=== PATIENT | female | born 1980 | race Caucasian/White ===

== ENCOUNTER 2017-12-10 05:36 | Inpatient (IN) | payer OTHER ==
--- NOTE | 2017-12-10 06:17 | PCM.LDHP ---
L&D History of Present Illness - General Date of Service: 12/10/17 Admit Problem/Dx: Admission Diagnosis/Problem Admission Diagnosis/Problem 12/10/17 06:02 39-3/7 week intrauterine , admitted for elective induction of labor Source of Information: Patient History Limitations: Reports: No Limitations - History of Present Illness Introduction:: Shilpa is a 37-year-old 4 para 210 white female was admitted at 39-3/7 weeks gestational age for elective induction of labor. He is 12/14/2017 as determined by a certain last menstrual period which started on 03/09/2017 and is supported by 3 ultrasounds that were done on 05/31/2017, 08/03/2017 and 2017. She is induced for distance from the hospital and multiparous status. Risk factors for the include age of 37, history of previous section for twins that were delivered , group B strep positive status, thyroid nodule, progesterone deficiency early in . The procedure of elective induction of labor, its risks, benefits and as of care are discussed in detail the patient. These risks especially in light of her history of previous section which was a low transverse section done for twins last . She appears to understand, wishes to proceed. OB history: 4 para 06/24/03 MARCELINA 12/14/2017. Patient had menarche at age 16 , cycles every 28 days. Her last menstrual period was definite and started on . Her menses are regular on a monthly basis. Her past obstetric history includes the followin. Male born 02/13/2014 at 38 weeks gestational age5 lbs. 11 oz.17 hours of labornormal spontaneous vaginal delivery at [place]. Second-degree laceration. 2. Male born 06/26/2015 at 39-3/7 weeks gestational age1-1/2 hour labor6 lbs. 13 oz.born at [place] name [place] 3. Twin gestation delivered 05/14/2016-twin A male infant 3 lbs. 5 oz., twin B male infant 3 lbs. 2 oz. done at [facility] in [place] for labor. Children's names are Milton and Elijah course has been relatively unremarkable. She has a breast lump which was benign and stable during the course of . She declined genetic testing. She is group B strep positive. History of delivery. I reviewed nodule -single noted. Patient seen early in the for care. First visit was at 11-6/7 weeks gestational age. Her was from 257 pounds 200 283 pounds for a 27 pound weight gain. Her vital signs stable throughout the . Her fundal height growth was appropriate. Laboratory testing in shows her blood to be AB+, negative antibody screen. RPR is nonreactive. Rubella titer shows immunity. Pap smear was normal. First CBC showed a hemoglobin of 14.5 g/dL and platelets of 306,000. Unremarkable. Hepatitis B surface antigen and HIV assays were both negative. Chlamydia and gonorrhea assays both negative. Second trimester labs showed hemoglobin 12.0 g/dL and platelets 268,000. Her 1 hour GTT was elevated at 172 or 3 hour GTT was normal with values as follows: [id number], 1 [id number], 2 [id number] , [id number]. Strep screen positive. Allergies: None Medications: 1. Proair inhaler use when necessarypatient uses infrequently 2. vitamins daily 3. Full gas capsules 4. Ferrous sulfate 325 mg by mouth daily Past medical history: Normal spontaneous vaginal delivery 2 Asthmamild 3. Hayfever Past surgical history: 1. Rest enhancement surgery 2. 1 for twins 3. Bladder surgery as a child. Family history: Patient's mother is alive and well as is her father. Patient has 6 siblings 1 with epilepsy 1 with diabetes mellitus. All her children are alive and well. Maternal grandmother is alive but has a history of colon cancer and lung cancer but is doing well. Maternal grandfather secondary to bladder cancer, heart issues, diabetes and the leg amputation. Paternal grandmother age 92 has history of breast cancer. Paternal grandfather from an ID. One paternal aunt with rheumatoid arthritis, one paternal thyroid disorder, one paternal with history of liver transplant for uncertain reasons. Social history: Patient is single, lives in [facility]. Her significant other is Satish Landon. She does not use any significant loss of alcohol, drugs or tobacco. Review of systems: In general patient has had an unremarkable . Babies been active and no concerns are noted. Skin: Negative Cardiovascular: No chest pain or exercise intolerance Respiratory: No shortness of breath or infectious symptoms Breasts: Changes associated with . Patient plans to breast-feed GI: Negative : Body habitus change with increased fundal height consistent with Neurological: Negative Musculoskeletal: Negative Physical exam: In general patient is well-developed well-nourished overweight white female in no acute distress. Blood pressure on last evaluation clinic was 114/70, weight was 283.6 with first weight at 257 pounds. Her heart rate was 134. Height is 5 feet 10. Pregravid body mass index was 36.2 Skin is warm and dry without lesions. HEENT, neck and back within normal limits. Cardio gastric exam shows regular rhythm without murmurs. Lungs are clear with good breath sounds in all lung lorenz. Breast exam is deferred at this time as patient had this done at first visit was found to be normal. She does plan to breast-feed. Abdomen is protuberant fundal height 39 cm. Baby in vertex presentation. Cervical exam shows 2 cm, 70% effacement, -3 station, mid position, very soft. Extremities and neurological exam grossly within normal limits. - Related Data Allergies/Adverse Reactions: Allergies Allergy/AdvReac Type Severity Reaction Status Date / Time No Known Allergies Allergy Verified 02/13/14 15:46 Home Medications: Home Meds Vit with Ca/FA/Iron [ Plus Iron] 1 each PO DAILY #1100 tablet 02/15/14 [Rx] Acetaminophen/oxyCODONE [Percocet 325-5 MG] 2 tab PO Q4H PRN #30 tablet [Rx] Docusate Sodium [Colace] 100 mg PO Q12H PRN #20 cap 05/15/16 [Rx] Ibuprofen [IJD: Ibuprofen] 600 mg PO Q4H PRN #30 tablet 05/15/16 [Rx] Past Medical History HEENT History: Reports: Other (See Below) Other HEENT History: Recent dental pain, thought may have been an abscess. Saw dentist 2 weeks ago. Problem was a crown "going bad". Feels fine, will treat @ dentist office. Respiratory History: Reports: Asthma Other Respiratory History: History of Asthma--has Pro Air rescue inhaler, prescribed 2013. No use throughout . 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 Following surgery has not had any UTIs. 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 Denies needing thyroid medication/tx presently - Past Surgical History Female Surgical History: Reports: Breast Implant - History Comment History Comment: Pt interviewed as entering OR 1. Patient denies any health issues including asthma. Patient in alot of pain and moving about. Unable to get anesthesia consent prior only verbal consent. Social & Family History - Family History Family Medical History: Noncontributory Other HEENT Family History: PLEASE SEE RECORD FOR COMPLETE FAMILY HISTORY. - Caffeine Use Caffeine Use: Reports: None H&P Review of Systems - Review of Systems: Review Of Systems: See Below L&D Exam - Exam Exam: See Below Problem List Initiated/Reviewed/Updated: Yes Assessment/Plan Comment:: 1. 39-3/7 week intrauterine admitted for elective induction of labor 2. History of previous section for twins. Patient has delivered vaginally 2. incision is low transverse type. 3. Group B strep positive. Para 4. Patient plans to breast-feed at this time 5. Rubella immune 6. RPR nonreactive 7. Okay for epidural Plan: 1. Pitocin induction of labor, artificial rupture membrane augmentation 1 possible 2. Group B strep prophylaxis with ampicillin per protocol 3. After discussion is held with patient concerning risks of attempted vaginal after section she appears to understand and wishes to proceed. Consent will be signed for trial of labor with attempt at and for section. 4. labs will be drawn, near continuous monitoring will be undertaken during labor, IV access will be established at the beginning of labor, anesthesia and surgery will be made aware of patient's presence in labor and delivery 5. Suspected .
[2017-12-10] MEDS ORDERED: Nalbuphine 20 MG/ML 1 ML Syringe IVPUSH PRN (06:20)
[2017-12-10] MEDS ORDERED: Sodium Chloride 0.9% 10 ML Syringe FLUSH PRN (06:20)
[2017-12-10] MEDS ORDERED: Oxytocin/Lactated Ringers 10 UNIT/1,000 ML BAG IV SCH (06:30)
[2017-12-10] MEDS ORDERED: Ampicillin 2 GM in Sodium Chloride 0.9% 100 ML IV ONE (07:30)
[2017-12-10] MEDS: Lactated Ringers 1,000 ML IV SCH ×2 (08:29→16:04)
[2017-12-10] MEDS ORDERED: Lidocaine 1% PF 2 ML SDV ONE (09:00)
[2017-12-10] MEDS ORDERED: Bupivacaine 0.25% 10 ML SDV ONE (09:00)
--- NOTE | 2017-12-10 10:50 | PCM.PREANE ---
Preanesthetic Assessment - Anesthesia/Transfusion/Family Hx Anesthesia History: Prior Anesthesia Without Reaction Family History of Anesthesia Reaction: No Transfusion History: No Prior Transfusion(s) - Review of Systems General: No Symptoms Pulmonary: No Symptoms, Other (Mild Asthma. Allergen induced. ) Cardiovascular: No Symptoms Gastrointestinal: No Symptoms Neurological: No Symptoms Other: Reports: None - Physical Assessment Pulse: 83 O2 Sat by Pulse Oximetry: 98 Respiratory Rate: 18 Blood Pressure: 129/76 Vital Signs: Last Vital Signs Temp 36.6 C 12/10/17 06:21 Pulse 83 12/10/17 09:01 Resp 18 12/10/17 06:21 BP 129/76 12/10/17 09:01 Pulse Ox Height: 1.75 m Weight: 130.635 kg ASA Class: 2 Mental Status: Alert & Oriented x3 Airway Class: Mallampati = 2 Dentition: Reports: Normal Dentition Thyro-Mental Finger Breadths: 2 Mouth Opening Finger Breadths: 3 ROM/Head Extension: Full Lungs: Clear to Auscultation, Normal Respiratory Effort Cardiovascular: Regular Rate, Regular Rhythm - Allergies Allergies/Adverse Reactions: Allergies Allergy/AdvReac Type Severity Reaction Status Date / Time No Known Allergies Allergy Verified 02/13/14 15:46 - Acknowledgements Anesthesia Type Planned: Epidural Pt an Appropriate Candidate for the Planned Anesthesia: Yes Alternatives and Risks of Anesthesia Discussed w Pt/Guardian: Yes Pt/Guardian Understands and Agrees with Anesthesia Plan: Yes PreAnesthesia Questionnaire HEENT History: Reports: Other (See Below) Other HEENT History: hx dental pain prior , thought may have been an abscess. Problem was a crown "going bad". treated @ dentist office. Respiratory History: Reports: Asthma Other Respiratory History: History of Asthma--has Pro Air rescue inhaler, prescribed 2013. 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 Following surgery has not had any UTIs. 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 Denies needing thyroid medication/tx presently - Past Surgical History HEENT Surgical History: Reports: None Respiratory Surgical History: Reports: None Female Surgical History: Reports: Breast Implant, Section Dermatological Surgical History: Reports: None - History Comment History Comment: Pt interviewed as entering OR 1. Patient denies any health issues including asthma. Patient in alot of pain and moving about. Unable to get anesthesia consent prior only verbal consent. - SUBSTANCE USE Smoking Status *Q: Never Smoker Second Hand Smoke Exposure: No Recreational Drug Use History: No - HOME MEDS Home Medications: Home Meds Vit with Ca/FA/Iron [ Plus Iron] 1 each PO DAILY #1100 tablet 02/15/14 [Rx] Albuterol Sulfate [Proair Respiclick] 90 mcg IH Q4HR PRN 12/10/17 [History] Cetirizine [ZyrTEC] 10 mg PO DAILY 12/10/17 [History] Folic Acid 1 mg PO BEDTIME 12/10/17 [History] Lansoprazole [Prevacid] 1 tab PO DAILY 12/10/17 [History] - CURRENT (IN HOUSE) MEDS Current Meds: Current Medications Ampicillin Sodium 1 gm/ Sodium (Chloride) 100 mls @ 200 mls/hr IV Q4H FARZANEH Lactated Ringer's (Ringers, Lactated) 1,000 mls @ 100 mls/hr IV ASDIRECTED FARZANEH Last Admin: 12/10/17 08:29 Dose: 100 mls/hr Oxytocin/Lactated Ringer's (Pitocin In Lr 10 Units/1,000 Ml) 10 unit in 1,000 mls @ 12 mls/hr IV TITRATE FARZANEH; Protocol Last Titration: 12/10/17 10:39 Dose: 8 munits/min, 48 mls/hr Lidocaine HCl (Xylocaine 1%) 10 ml INJECT ONETIME ONE Stop: 12/10/17 13:01 Nalbuphine HCl (Nubain) 10 mg IVPUSH Q2H PRN PRN Reason: Pain (moderate 4-6) Sodium Chloride (Saline Flush) 10 ml FLUSH ASDIRECTED PRN PRN Reason: Keep Vein Open Discontinued Medications Ampicillin Sodium 2 gm/ Sodium (Chloride) 100 mls @ 200 mls/hr IV ONETIME ONE Stop: 12/10/17 07:59 Last Admin: 12/10/17 08:30 Dose: 200 mls/hr
[2017-12-10] MEDS ORDERED: Acetaminophen 325 MG Tab PO PRN ×2 (12:05→18:52)
[2017-12-10] MEDS: Ampicillin 1 GM in Sodium Chloride 0.9% 100 ML IV SCH ×2 (12:13→15:46)
[2017-12-10] MEDS ORDERED: Lidocaine 1% 50 ML MDV INJECT ONE (13:00)
[2017-12-10] MEDS ORDERED: Ondansetron 4 MG/2 ML SDV IVPUSH PRN (15:46)
[2017-12-10] MEDS ORDERED: fentaNYL 100 MCG/2 ML SDV EPIDUR PRN (15:46)
[2017-12-10] MEDS ORDERED: ePHEDrine 50 MG/ML SDV IVPUSH PRN (15:46)
[2017-12-10] MEDS ORDERED: diphenhydrAMINE 50 MG/ML SDV IVPUSH PRN (15:46)
[2017-12-10] MEDS ORDERED: fentaNYL 100 MCG/2 ML SDV ONE (15:52)
[2017-12-10] MEDS ORDERED: Bupivacaine/fentaNYL/NS 100 ML Bag EPIDUR SCH (16:00)
[2017-12-10] MEDS ORDERED: Albuterol 6.7 GM Inhaler INH PRN (18:17)
--- NOTE | 2017-12-10 18:26 | PCM.SN ---
- Free Text/Narrative Note: Shilpa is a 37-year-old 4 now para 3105 white female is admitted this a.m. at 39-3/7 weeks gestational age with an MARCELINA of 12/14/2017 for elective induction of labor. Patient had previous section and 2 previous vaginal deliveries. was done for twins. She was noted to have contractions upon admission. She underwent Pitocin induction and artificial rupture of membranes augmentation. She slowly progressed to 5 cm at approximately 1500 hrs. She then rapidly progressed to complete by about 1745 hours. She pushed for 3 contractions and delivered a viable, asencio, male infant with Apgars of 8 and 9, of length of 1913.5 inches and weight of 3330 g ( 7 lbs. 5 oz.) at 1802 hrs. on 12/10/2017. Baby was placed on mom's abdomen. Nose and mouth were bulb suctioned. The cord was allowed to pulsate until it stopped. The cord was clamped 2 and then cut by the baby's father. It should be noted patient is baby had a nuchal cord 1 which is moderately tight and was reduced over the baby's body. Perineum was intact and it is only a small very superficial abrasion in the area of the anterior vagina. No stitches were necessary. The placenta delivered at 1804 hrs. in a Bartlett presentation. It appeared intact and complete and was discarded per patient request. The umbilical cord had 3 vessels. Estimated blood loss was 100 mL. Patient is nursing the baby. Condition: Good
[2017-12-10] MEDS ORDERED: Benzocaine/Menthol 20%-0.5% Spray 56 GM Canister TOP PRN (18:52)
[2017-12-10] MEDS ORDERED: Docusate Sodium 100 MG Cap PO PRN (18:52)
[2017-12-10] MEDS ORDERED: Witch Hazel Medicated Pads 100/Jar TOP PRN (18:52)
[2017-12-10] MEDS ORDERED: Lanolin 100% Cream 7 GM Tube TOP PRN (18:52)
[2017-12-11] MEDS: Ibuprofen 600 MG Tab PO PRN ×2 (06:31→14:04)
--- NOTE | 2017-12-11 10:48 | PCM.DCSUM1 ---
Discharge Summary - Hospital Course Free Text/Narrative:: [facility] Provider Simple Note Patient Name: FRENCH GUEVARA Date of : 80 Patient Status: Inpatient Attending Provider: Venkata Luu Date: 12/10/17 18:20 Initialization Date: 12/10/17 18:20 - Free Text/Narrative Note: French is a 37-year-old 4 now para 3105 white female is admitted this a.m. at 39-3/7 weeks gestational age with an MARCELINA of 12/14/2017 for elective induction of labor. Patient had previous section and 2 previous vaginal deliveries. was done for twins. She was noted to have contractions upon admission. She underwent Pitocin induction and artificial rupture of membranes augmentation. She slowly progressed to 5 cm at approximately 1500 hrs. She then rapidly progressed to complete by about 1745 hours. She pushed for 3 contractions and delivered a viable, asencio, male with Apgars of 8 and 9, of length of 1913.5 inches and weight of 3330 g ( 7 lbs. 5 oz.) at 1802 hrs. on 12/10/2017. Baby was placed on mom's abdomen. Nose and mouth were bulb suctioned. The cord was allowed to pulsate until it stopped. The cord was clamped 2 and then cut by the baby's father. It should be noted patient is baby had a nuchal cord 1 which is moderately tight and was reduced over the baby's body. Perineum was intact and it is only a small very superficial abrasion in the area of the anterior vagina. No stitches were necessary. The placenta delivered at 1804 hrs. in a Bartlett presentation. It appeared intact and complete and was discarded per patient request. The umbilical cord had 3 vessels. Estimated blood loss was 100 mL. Patient is nursing the baby. Condition: Good HPI Initial Comments: [facility] Provider Simple Note Patient Name: FRENCH GUEVARA Date of : 80 Patient Status: Inpatient Attending Provider: Venkata Luu Date: 12/10/17 18:20 Initialization Date: 12/10/17 18:20 - Free Text/Narrative Note: French is a 37-year-old 4 now para 3105 white female is admitted this a.m. at 39-3/7 weeks gestational age with an MARCELINA of 12/14/2017 for elective induction of labor. Patient had previous section and 2 previous vaginal deliveries. was done for twins. She was noted to have contractions upon admission. She underwent Pitocin induction and artificial rupture of membranes augmentation. She slowly progressed to 5 cm at approximately 1500 hrs. She then rapidly progressed to complete by about 1745 hours. She pushed for 3 contractions and delivered a viable, asencio, male infant with Apgars of 8 and 9, of length of 1913.5 inches and weight of 3330 g ( 7 lbs. 5 oz.) at 1802 hrs. on 12/10/2017. Baby was placed on mom's abdomen. Nose and mouth were bulb suctioned. The cord was allowed to pulsate until it stopped. The cord was clamped 2 and then cut by the baby's father. It should be noted patient is baby had a nuchal cord 1 which is moderately tight and was reduced over the baby's body. Perineum was intact and it is only a small very superficial abrasion in the area of the anterior vagina. No stitches were necessary. The placenta delivered at 1804 hrs. in a Bartlett presentation. It appeared intact and complete and was discarded per patient request. The umbilical cord had 3 vessels. Estimated blood loss was 100 mL. Patient is nursing the baby. Condition: Good Brief History: [facility] . Provider Simple Note. Patient Name : FRENCH GUEVARA [facility] Record Number: [id number]. Date of : Patient Status: Inpatient. Attending Provider: Venkata Luu FAccount Number : [id number]. Date: 12/10/17 18:20Initialization Date: 12/10/17 18:20. - Free Text/Narrative. Note: French is a 37-year-old 4 now para 3105 white female is admitted this a.m. at 39-3/7 weeks gestational age with an MARCELINA of 12/14/2017 for elective induction of labor. Patient had previous section and 2 previous vaginal deliveries. was done for twins. She was noted to have contractions upon admission. She underwent Pitocin induction and artificial rupture of membranes augmentation. She slowly progressed to 5 cm at approximately 1500 hrs. She then rapidly progressed to complete by about 1745 hours. She pushed for 3 contractions and delivered a viable, asencio, male infant with Apgars of 8 and 9, of length of 1913.5 inches and weight of 3330 g (7 lbs. 5 oz.) at 1802 hrs. on 12/10/2017. Baby was placed on mom's abdomen. Nose and mouth were bulb suctioned. The cord was allowed to pulsate until it stopped. The cord was clamped 2 and then cut by the baby's father. It should be noted patient is baby had a nuchal cord 1 which is moderately tight and was reduced over the baby's body. Perineum was intact and it is only a small very superficial abrasion in the area of the anterior vagina. No stitches were necessary. The placenta delivered at 1804 hrs. in a Bartlett presentation. It appeared intact and complete and was discarded per patient request. The umbilical cord had 3 vessels. Estimated blood loss was 100 mL. Patient is nursing the baby. Condition: Good. [facility] . Provider Simple Note. [facility]: [id number] Date of : 80Patient Status : Inpatient. Attending Provider: Venkata Luu FAccount Number: [id number]. Date: 12/10/17 18:20Initialization Date: 12/10/17 18:20. - Free Text/ Narrative. Note: French is a 37-year-old 4 now para 3105 white female is admitted this a.m. at 39-3/7 weeks gestational age with an MARCELINA of 12/14/2017 for elective induction of labor. Patient had previous section and 2 previous vaginal deliveries. was done for twins. She was noted to have contractions upon admission. She underwent Pitocin induction and artificial rupture of membranes augmentation. She slowly progressed to 5 cm at approximately 1500 hrs. She then rapidly progressed to complete by about 1745 hours. She pushed for 3 contractions and delivered a viable, asencio, male infant with Apgars of 8 and 9, of length of 1913.5 inches and weight of 3330 g ( 7 lbs. 5 oz.) at 1802 hrs. on 12/10/2017. Baby was placed on mom's abdomen. Nose and mouth were bulb suctioned. The cord was allowed to pulsate until it stopped. The cord was clamped 2 and then cut by the baby's father. It should be noted patient is baby had a nuchal cord 1 which is moderately tight and was reduced over the baby's body. Perineum was intact and it is only a small very superficial abrasion in the area of the anterior vagina. No stitches were necessary. The placenta delivered at 1804 hrs. in a Bartlett presentation. It appeared intact and complete and was discarded per patient request. The umbilical cord had 3 vessels. Estimated blood loss was 100 mL. Patient is nursing the baby. 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 OF GROUP B STREPTOCOCCUS Status: Acute Current Visit: No (3) Normal delivery at term SNOMED Code(s): 40169870 ICD Code: O80 - ENCOUNTER FOR FULL-TERM UNCOMPLICATED DELIVERY Status: Acute Current Visit: No - Patient Summary/Data Complications: None Consults: None Hospital Course: Uneventful - Patient Instructions Diet: Regular Diet as Tolerated Driving: Do Not Drive (48 hours) Showering/Bathing: May Shower Notify Provider of: Fever, Increased Pain, Swelling and Redness, Drainage, Nausea and/or Vomiting - Discharge Plan *PRESCRIPTION DRUG MONITORING PROGRAM REVIEWED*: Not Applicable *COPY OF PRESCRIPTION DRUG MONITORING REPORT IN PATIENT BLADIMIR: Not Applicable Home Medications: Home Meds Vit with Ca/FA/Iron [ Plus Iron] 1 each PO DAILY #1100 tablet 02/15/14 [Rx] Albuterol Sulfate [Proair Respiclick] 90 mcg IH Q4HR PRN 12/10/17 [History] Cetirizine [ZyrTEC] 10 mg PO DAILY 12/10/17 [History] Folic Acid 1 mg PO BEDTIME 12/10/17 [History] Lansoprazole [Prevacid] 1 tab PO DAILY 12/10/17 [History] Acetaminophen [Tylenol] 650 mg PO Q4H PRN tablet 12/11/17 [Rx] Benzocaine/Menthol [Dermoplast Pain Relief [place]] 1 spray TOP ASDIRECTED PRN canister 12/11/17 [Rx] Docusate Sodium [Colace] 100 mg PO BID PRN cap 12/11/17 [Rx] Ibuprofen [Motrin] 600 mg PO Q4H PRN tablet 12/11/17 [Rx] Lanolin [Lansinoh HPA] 1 applic TOP ASDIRECTED PRN tube 12/11/17 [Rx] Jenniffer Mikayla [Tucks] 1 pad TOP ASDIRECTED PRN pad 12/11/17 [Rx] Referrals: Venkata Luu MD [Primary Care Provider] - (Will call Wednesday for an appointment in 2 weeks.) - Discharge Summary/Plan Comment DC Time >30 min.: No - Patient Data Vitals - Most Recent: Last Vital Signs Temp 98.8 F 12/11/17 09:08 Pulse 68 12/11/17 09:08 Resp 16 12/11/17 09:08 BP 127/74 12/11/17 09:08 Pulse Ox 98 12/11/17 09:08 Weight - Most Recent: 288 lb I&O - Last 24 hours: Intake & Output 12/10/17 12/11/17 12/11/17 22:59 06:59 14:59 Intake Total 2100 420 Output Total 300 Balance 1800 420 Lab Results - Last 24 hrs: Laboratory Results - last 24 hr 12/10/17 12/10/17 Range/Units 10:56 10:56 WBC 8.07 (3.98-10.04) K/mm3 RBC 3.90 L (3.98-5.22) M/mm3 Hgb 11.9 (11.2-15.7) gm/L Hct 34.8 (34.1-44.9) % MCV 89.2 (79.4-94.8) fl MCH 30.5 (25.6-32.2) pg MCHC 34.2 (32.2-35.5) g/dl RDW Std Deviation 42.7 (36.4-46.3) fL Plt Count 259 (182-369) K/mm3 MPV 10.5 (9.4-12.3) fl Blood Type AB POSITIVE Gel Antibody Screen Negative Med Orders - Current: Current Medications Acetaminophen (Tylenol) 650 mg PO Q4H PRN PRN Reason: mild pain or fever Last Admin: 12/10/17 20:54 Dose: 650 mg Benzocaine/Menthol (Dermoplast Pain Relief [place]) 0 gm TOP ASDIRECTED PRN PRN Reason: Perineal Comfort Measure Last Admin: 12/10/17 20:55 Dose: 1 applic Docusate Sodium (Colace) 100 mg PO BID PRN PRN Reason: Constipation Emollient Ointment (Lansinoh Hpa) 0 gm TOP ASDIRECTED PRN PRN Reason: Sore Nipples Ibuprofen (Motrin) 600 mg PO Q4H PRN PRN Reason: Mild pain or fever Last Admin: 12/11/17 06:31 Dose: 600 mg Witch Mikayla (Tucks) 1 pad TOP ASDIRECTED PRN PRN Reason: Hemorrhoid pain Last Admin: 12/10/17 20:55 Dose: 1 applic Discontinued Medications Acetaminophen (Tylenol) 650 mg PO Q6H PRN PRN Reason: Pain Last Admin: 12/10/17 12:13 Dose: 650 mg Albuterol (Proventil Hfa) 0 gm INH Q4HR PRN PRN Reason: Dyspnea Bupivacaine HCl (Sensorcaine-Mpf 0.25%) 10 ml .ROUTE .STK-MED ONE Stop: 12/10/17 09:01 Diphenhydramine HCl (Benadryl) 25 mg IVPUSH Q6H PRN PRN Reason: Pruritis Ephedrine Sulfate (Ephedrine Sulfate) 5 mg IVPUSH ASDIRECTED PRN PRN Reason: Hypotension Fentanyl (Sublimaze) 100 mcg EPIDUR ONETIME PRN PRN Reason: Pain Last Admin: 12/10/17 15:56 Dose: 100 mcg Fentanyl (Sublimaze) Confirm Administered Dose 100 mcg .ROUTE .STK-MED ONE Stop: 12/10/17 15:53 Last Admin: 12/10/17 15:57 Dose: Not Given Fentanyl/Bupivacaine HCl (Fentanyl/Bupivacaine/Ns 2 Mcg-0.125% 100 Ml) 100 ml EPIDUR ASDIRECTED FARZANEH Last Admin: 12/10/17 15:58 Dose: 100 ml Ampicillin Sodium 2 gm/ Sodium (Chloride) 100 mls @ 200 mls/hr IV ONETIME ONE Stop: 12/10/17 07:59 Last Admin: 12/10/17 08:30 Dose: 200 mls/hr Ampicillin Sodium 1 gm/ Sodium (Chloride) 100 mls @ 200 mls/hr IV Q4H FARZANEH Last Admin: 12/10/17 15:46 Dose: 200 mls/hr Lactated Ringer's (Ringers, Lactated) 1,000 mls @ 100 mls/hr IV ASDIRECTED FARZANEH Last Admin: 12/10/17 16:04 Dose: 100 mls/hr Oxytocin/Lactated Ringer's (Pitocin In Lr 10 Units/1,000 Ml) 10 unit in 1,000 mls @ 12 mls/hr IV TITRATE FARZANEH; Protocol Last Titration: 12/10/17 14:32 Dose: 16 munits/min, 96 mls/hr Lidocaine HCl (Xylocaine 1%) 10 ml INJECT ONETIME ONE Stop: 12/10/17 13:01 Last Admin: 12/10/17 18:41 Dose: Not Given Lidocaine HCl (Xylocaine-Mpf 1%) 2 ml .ROUTE .STK-MED ONE Stop: 12/10/17 09:01 Nalbuphine HCl (Nubain) 10 mg IVPUSH Q2H PRN PRN Reason: Pain (moderate 4-6) Ondansetron HCl (Zofran) 4 mg IVPUSH ONETIME PRN PRN Reason: Nausea/Vomiting Sodium Chloride (Saline Flush) 10 ml FLUSH ASDIRECTED PRN PRN Reason: Keep Vein Open
[2017-12-11 20:09] VITALS: BP 127/80
--- NOTE | 2017-12-12 17:51 | PCM48HPAN ---
Post Anesthesia Note - EVALUATION WITHIN 48HRS OF ANESTHETIC Vital Signs in Normal Range: Yes Patient Participated in Evaluation: No Respiratory Function Stable: Yes Airway Patent: Yes Cardiovascular Function Stable: Yes Hydration Status Stable: Yes Pain Control Satisfactory: Yes Nausea and Vomiting Control Satisfactory: Yes Mental Status Recovered: Yes - COMMENTS/OBSERVATIONS Free Text/Narrative:: Patient discharged home. Chart reviewed. No complications noted. Patient had no further questions at discharge.
== END 2017-12-11 19:30 | disposition home or self-care (01) | DRG 775 ==
LOC: JD.OB 07:21 → OBSVTOIN 18:02 → JD.OB 18:02
PROVIDERS: ADMIT Obstetrics & Gynecology; ATTEND Obstetrics & Gynecology
PROC: 10E0XZZ Delivery of Products of Conception, External Approach (ICD-10-PCS; principal; 2017-12-10)
PROC: 3E033VJ Introduction of Other Hormone into Peripheral Vein, Percutaneous Approach (ICD-10-PCS; principal; 2017-12-10)
PROC: 10907ZC Drainage of Amniotic Fluid, Therapeutic from Products of Conception, Via Natural or Artificial Opening (ICD-10-PCS; principal; 2017-12-10)
PROC: 3E0R3BZ Introduction of Anesthetic Agent into Spinal Canal, Percutaneous Approach (ICD-10-PCS; 2017-12-10)
PROC: 00HU33Z Insertion of Infusion Device into Spinal Canal, Percutaneous Approach (ICD-10-PCS; 2017-12-10)
DX: O99.824 Streptococcus B carrier state complicating childbirth (principal); Z37.0 Single live birth; O34.211 Maternal care for low transverse scar from previous cesarean delivery; N85.8 Other specified noninflammatory disorders of uterus; O69.1XX0 Labor and delivery complicated by cord around neck, with compression, not applicable or unspecified; O99.52 Diseases of the respiratory system complicating childbirth; Z3A.39 39 weeks gestation of pregnancy; J45.909 Unspecified asthma, uncomplicated; Z87.440 Personal history of urinary (tract) infections; O99.284 Endocrine, nutritional and metabolic diseases complicating childbirth; E04.2 Nontoxic multinodular goiter
CPT/HCPCS: 36415; 51702; 59025; 59409; 85027; 86850; 86900; 86901; A9270-GY; J0290; J2001; J2590; J3010; J3490; J7030; J7120

== ENCOUNTER 2020-07-22 00:54 | Inpatient (IN) | payer MEDICAID ==
[2020-07-22] MEDS ORDERED: Calcium Carbonate 500 MG Tab.Chew PO PRN (01:51)
[2020-07-22] MEDS ORDERED: Nalbuphine 10 MG/1 ML Vial IVPUSH PRN (01:51)
[2020-07-22] MEDS ORDERED: Acetaminophen 325 MG Tab PO PRN ×2 (01:51→07:16)
[2020-07-22] MEDS ORDERED: Sodium Chloride 0.9% 10 ML Syringe FLUSH PRN (01:51)
[2020-07-22] MEDS ORDERED: Lidocaine 1% 50 ML MDV INJECT ONE (01:51)
[2020-07-22] MEDS ORDERED: Ondansetron 4 MG/2 ML SDV IVPUSH PRN (01:51)
[2020-07-22] MEDS ORDERED: Lactated Ringers 1,000 ML IV SCH (02:00)
[2020-07-22] MEDS ORDERED: Oxytocin/Lactated Ringers 10 UNIT/1,000 ML BAG IV SCH ×2 (02:00)
--- NOTE | 2020-07-22 05:55 | PCM.LDHP ---
L&D History of Present Illness - General Date of Service: 07/22/20 Admit Problem/Dx: Patient Status Order with Admit Dx/Problem 07/22/20 01:03 Patient Status [ADT] Routine 07/22/20 01:51 Patient Status [ADT] Routine Admission Diagnosis/Problem Admission Diagnosis/Problem 07/22/20 05:40 Shilpa is a 39-year-old 5 para 3-1-0-5 (twins) presently at 37-6/7 weeks gestational age with an MARCELINA of 08/06/2020 who is admitted to labor and delivery in early labor with spontaneous rupture membranes with resultant clear amniotic fluid. Source of Information: Patient History Limitations: Reports: No Limitations - History of Present Illness Introduction:: Shilpa is a 39-year-old 5 para 3-1-0-5 (twins) presently at 37-6/7 weeks gestational age with an MARCELINA of 08/06/2020 who is admitted to labor and delivery in early labor with spontaneous rupture membranes with resultant clear amniotic fluid. SROM occurred at approximately 2330 hrs. on 07/21/2020. She started labor and is suzi approximate every 3 to 5 minutes, mild to moderate in intensity. Cervix is 5 cm per nursing evaluation. Amniotic fluid is clear. heart tones are reassuring. 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 Patient had menarche at appr oximately age 12. Cycles are every 30 days and regular. hCG was positive on 11/28/2019. She denies any STIs. History includes the followin. Female infant born 02/13/2014 at 38 weeks gestational age after 17 hours of labor5 pounds 11 ouncesNSVDepidural useSt. [facility] Hospitalecond-degree lacerationSadie Supriya 2. Male infant born 06/26/1999 1639 and 3 7 weeks gestational age1-1/2 hours of labor6 pounds 15 ouncesNSVDSt. [facility] Centern[facility] anesthesiachild's name is Jonathan 3. Twin gestationdelivered 05/14/2016both male infants weighing 3 pounds 5 ounces and 3 pounds 2 ounces for baby A and baby B. performed. [facility] in [place], lavinia's names are Milton and Elijah 4. Male born 7 [birth year]-39-3/7 weeks gestational age10 hours of labor7 p ounds 5 ouncesNSVDepidural useSt. [facility] course: MARCELINA of 08/06/2020 is determined by a certain last menstrual period started on 10/31/2019 and supported by 2 ultrasounds done on 01/18/2020 and 03/20/2020. Patient was seen early in at 11 weeks and 2 days. She was seen on a very regular basis throughout the course the . Weight change was from 261 down to 241 pounds. This for a 20 pound loss. Fundal height growth was appropriate and vital signs are stable throughout the course. She desires an epidural in labor delivery. Her group B strep screen was negative. She desires a and has successfully . She was noted to be a gestational diabetic and is very well controlled with diet alone. She plans to bottlefeed. Prequel noninvasive screen was negative for trisomy 21, 18 and 13. She had her flu shot on 03/11/2020. Tdap was given on 07/02/2020 and she is rubella immune. Allergies: None Medications: 1. Tylenol PM extra strength tablets as needed 2. Benadryl as needed 3. vitamins 4. Zyrtec as needed Past medical history: 1. as above. 2. Hayfever 3. History of delivery Past surgical history: Breast augmentation surgery 2004 2. Bladder surgery 1991 3. times for twins Family history: All 4 children are alive and well. She has 6 siblings one with epilepsy and one was type 1 diabetes. Mother and father both alive and well. Maternal grandmother is alive but has a history of colon cancer and lung cancer. Maternal grandfather is secondary to bladder cancer, heart issues, diabetes mellitus and leg amputation. Paternal grandmother is age 92 with a history of breast cancer which she is not having treated. Paternal grandfather secondary to an [place]. Paternal aunt with rheumatoid arthritis history. Paternal aunt with thyroid disorder. Paternal aunt with history of liver transplant for reasons uncertain. Social history: Patient is single. Significant other is Satish Chand. She does not use any significant amounts of alcohol, drugs or tobacco. She lives in [place], [place]. She is a college graduate. Review of systems: In general patient has no complaints other than SROM and early labor. Baby has been active.. Skin: Negative Lungs: No infectious symptoms or shortness of breath Cardiovascular: No chest pain or exercise intolerance Breasts: No lumps, changes in size, pain, dimpling, discharge or axillary or supraclavicular concerns. GI: Negative : Changes associated with . Musculoskeletal: Negative Neurological: Negative Physical exam: In general the patient is well-developed, well-nourished, pleasant female of stated age in no acute distress. On last evaluation clinic on 07/18/2020 her blood pressure was 110/60. Fundal height was 38.5. heart rate was 150. Weight change in was a -20 pounds. Skin is warm dry without lesions. HEENT, neck and back within normal limits. Lungs are clear with good breath sounds in all lung lorenz. Cardiovascular exam shows regular and rhythm without murmurs. Abdomen is gravid with last fundal height of 38.5 cm and baby in vertex presentation. Genital per s digital exam at last visit was 2 cm, 50% effaced, soft, mid position, -3 station. Extremities and neurological exam are grossly within normal limits. - Related Data Allergies/Adverse Reactions: Allergies Allergy/AdvReac Type Severity Reaction Status Date / Time No Known Allergies Allergy Verified 07/22/20 01:02 Home Medications: Home Meds Vit with Ca/FA/Iron [ Plus Iron] 1 each PO DAILY #1100 tablet 02/15/14 [Rx] Acetaminophen/Diphenhydramine [Tylenol Pm Ex-Strength Caplet] 1 each PO 07/22/20 [History] Past Medical History HEENT History: Reports: Other (See Below) Other HEENT History: hx dental pain prior , thought may have been an abscess. Problem was a crown "going bad". treated @ dentist office. Respiratory History: Reports: Asthma Other Respiratory History: History of Asthma--has Pro Air rescue inhaler, prescribed 2013. last use 3 months agp Genitourinary History: Reports: Other (See Below) Other Genitourinary History: 1991 bladder surgery SOCIAL SECURITY SPECIALIST History: Reports: Neurological History: Reports: Migraines Endocrine/Metabolic History: Reports: Diabetes, Gestational Other Endocrine/Metabolic History: Hx of thyroid nodule; U/S repeated Jan 2015 and followed by internal medicine. Denies needing thyroid medication/tx presently - Infectious Disease History Infectious Disease History: Reports: Chicken Pox - Past Surgical History Respiratory Surgical History: Reports: None Female Surgical History: Reports: Breast Implant, Section Other Female Surgeries/Procedures: breast augmentation 2004, section 05/14/2016 Neurological Surgical History: Reports: None - History Comment History Comment: Pt interviewed as entering OR 1. Patient denies any health issues including asthma. Patient in alot of pain and moving about. Unable to get anesthesia consent prior only verbal consent. Social & Family History - Family History Family Medical History: No Pertinent Family History Other HEENT Family History: PLEASE SEE RECORD FOR COMPLETE FAMILY HISTORY. - Tobacco Use Tobacco Use Status *Q: Never Tobacco User - Caffeine Use Caffeine Use: Reports: None - Recreational Drug Use Recreational Drug Use: No H&P Review of Systems - Review of Systems: Review Of Systems: See Below L&D Exam - Exam Exam: See Below - Vital Signs Vital Signs: Last Vital Signs Temp 37.3 C 07/22/20 01:03 Pulse 76 07/22/20 01:03 Resp 16 07/22/20 01:03 BP 129/79 07/22/20 01:03 Pulse Ox 98 07/22/20 01:03 Weight: 111.402 kg - Patient Data Lab Results Last 24 hrs: Laboratory Results - last 24 hr 07/22/20 07/22/20 07/22/20 Range/Units 01:20 02:05 02:05 WBC 7.70 (3.98-10.04) K/mm3 RBC 3.80 L (3.98-5.22) M/mm3 Hgb 12.3 (11.2-15.7) gm/dl Hct 35.6 (34.1-44.9) % MCV 93.7 (79.4-94.8) fl MCH 32.4 H (25.6-32.2) pg MCHC 34.6 (32.2-35.5) g/dl RDW Std Deviation 42.2 (36.4-46.3) fL Plt Count 255 (182-369) K/mm3 MPV 10.8 (9.4-12.3) fl Neut % (Auto) 67.2 (34.0-71.1) % Lymph % (Auto) 21.3 (19.3-51.7) % [place] % (Auto) 10.0 (4.7-12.5) % Eos % (Auto) 1.3 (0.7-5.8) Baso % (Auto) 0.1 (0.1-1.2) % Neut # (Auto) 5.17 (1.56-6.13) K/mm3 Lymph # (Auto) 1.64 (1.18-3.74) K/mm3 Montgomery # (Auto) 0.77 H (0.24-0.36) K/mm3 Eos # (Auto) 0.10 (0.04-0.36) K/mm3 Baso # (Auto) 0.01 (0.01-0.08) K/mm3 POC Glucose (70-105) mg/dL Membrane Rupture Positive H SARS-CoV-2 RNA (CARLOS) (NEGATIVE) Blood Type AB POSITIVE Gel Antibody Screen Negative 07/22/20 07/22/20 Range/Units 02:10 04:03 WBC (3.98-10.04) K/mm3 RBC (3.98-5.22) M/mm3 Hgb (11.2-15.7) gm/dl Hct (34.1-44.9) % MCV (79.4-94.8) fl MCH (25.6-32.2) pg MCHC (32.2-35.5) g/dl RDW Std Deviation (36.4-46.3) fL Plt Count (182-369) K/mm3 MPV (9.4-12.3) fl Neut % (Auto) (34.0-71.1) % Lymph % (Auto) (19.3-51.7) % Montgomery % (Auto) (4.7-12.5) % Eos % (Auto) (0.7-5.8) Baso % (Auto) (0.1-1.2) % Neut # (Auto) (1.56-6.13) K/mm3 Lymph # (Auto) (1.18-3.74) K/mm3 Montgomery # (Auto) (0.24-0.36) K/mm3 Eos # (Auto) (0.04-0.36) K/mm3 Baso # (Auto) (0.01-0.08) K/mm3 POC Glucose 69 L (70-105) mg/dL Membrane Rupture SARS-CoV-2 RNA (CARLOS) Negative (NEGATIVE) Blood Type Gel Antibody Screen Result Diagrams: 07/22/20 02:05 Problem List Initiated/Reviewed/Updated: Yes Orders Last 24hrs: Active Orders 24 hr Category Date Time Status Patient Status [ADT] Routine ADT 07/22/20 01:51 Active Activity as Tolerated [RC] PFP Care 07/22/20 01:51 Active Blood Glucose Check, Bedside [RC] Q4HR Care 07/22/20 01:51 Active Communication Order [RC] ASDIRECTED Care 07/22/20 01:51 Active Heart Tones [RC] ASDIRECTED Care 07/22/20 01:51 Active Non Stress Test [RC] PER UNIT ROUTINE Care 07/22/20 01:03 Active Notify Provider [RC] PFP Care 07/22/20 01:51 Active Notify Provider [RC] PRN Care 07/22/20 01:51 Active Peripheral IV Care [RC] . DIRECTED Care 07/22/20 01:51 Active Vital Signs [RC] PER UNIT ROUTINE Care 07/22/20 01:03 Active Regular Diet [DIET] Diet 07/22/20 Breakfast Active RAPID PLASMA REAGIN,RPR [CHEM] Routine Lab 07/22/20 02:05 Received Acetaminophen [TylenoL] Med 07/22/20 01:51 Active 650 mg PO Q4H PRN Calcium Carbonate [Tums] Med 07/22/20 01:51 Active 1,000 mg PO Q2H PRN Lactated Ringers [Ringers, Lactated] 1,000 ml Med 07/22/20 02:00 Active IV ASDIRECTED Nalbuphine [Nubain] Med 07/22/20 01:51 Active 10 mg IVPUSH Q2H PRN Ondansetron [Zofran] Med 07/22/20 01:51 Active 4 mg IVPUSH Q4H PRN Oxytocin/Lactated Ringers [Pitocin in LR 10 Units/1,000 Med 07/22/20 02:00 Active ML] 10 unit in 1,000 ml IV .CONTINUOUS Oxytocin/Lactated Ringers [Pitocin in LR 10 Units/1,000 Med 07/22/20 02:00 Active ML] 10 unit in 1,000 ml IV TITRATE Sodium Chloride 0.9% [Saline Flush] Med 07/22/20 01:51 Active 10 ml FLUSH ASDIRECTED PRN Electronic Heart Tones Ext w TOCO [WOMSER] Oth 07/22/20 01:51 Ordered Routine Electronic Heart Tones Internal [WOMSER] Per Unit Oth 07/22/20 01:51 Ordered Routine Peripheral IV Insertion Adult [OM.PC] Routine Oth 07/22/20 01:51 Ordered Resuscitation Status Routine Resus Stat 07/22/20 01:51 Ordered Medication Orders Acetaminophen (Tylenol) 650 mg PO Q4H PRN PRN Reason: Pain (Mild 1-3) and fever Last Admin: 07/22/20 04:23 Dose: 650 mg Documented by: DIAN Calcium Carbonate/Glycine (Tums) 1,000 mg PO Q2H PRN PRN Reason: Indigestion Lactated Ringer's (Ringers, Lactated) 1,000 mls @ 100 mls/hr IV ASDIRECTED FARZANEH Oxytocin/Lactated Ringer's (Pitocin In Lr 10 Units/1,000 Ml) 10 unit in 1,000 mls @ 12 mls/hr IV TITRATE FARZANEH; Protocol Oxytocin/Lactated Ringer's (Pitocin In Lr 10 Units/1,000 Ml) 10 unit in 1,000 mls @ 500 mls/hr IV .CONTINUOUS FARZANEH Nalbuphine HCl (Nubain) 10 mg IVPUSH Q2H PRN PRN Reason: Pain Ondansetron HCl (Zofran) 4 mg IVPUSH Q4H PRN PRN Reason: Nausea/Vomiting Sodium Chloride (Saline Flush) 10 ml FLUSH ASDIRECTED PRN PRN Reason: Keep Vein Open Assessment/Plan Comment:: 1.Shilpa is a 39-year-old 5 para 3-1-0-5 (twins) presently at 37-6/7 weeks gestational age with an MARCELINA of 08/06/2020 who is admitted to labor and delivery in early labor with spontaneous rupture membranes with resultant clear amniotic fluid. 2. Group B strep negative 3. History of previous done at 30 weeks for twin gestation. Patient desires and has successfully . has been discussed in detail including procedure, risk, benefits, precautions taken etc. She appears understand and wishes to proceed. 4. Epidural as needed per patient desire 5. Patient plans to bottlefeed. 6. Patient has had her flu shot and her Tdap. She is rubella immune. Plan: 1. Anticipate successful . 2. Routine labor care 3. Consent for trial of labor after section for attempt at vaginal after section. Also consent for repeat . 4. labs to be done
[2020-07-22] MEDS ORDERED: fentaNYL 100 MCG/2 ML SDV EPIDUR PRN (06:17)
[2020-07-22] MEDS ORDERED: Bupivacaine/fentaNYL/NS 100 ML Bag EPIDUR PRN (06:17)
[2020-07-22] MEDS ORDERED: ePHEDrine 50 MG/ML SDV IVPUSH PRN (06:17)
[2020-07-22] MEDS ORDERED: diphenhydrAMINE 50 MG/ML SDV IVPUSH PRN (06:17)
--- NOTE | 2020-07-22 07:08 | PCM.SN.2 ---
- Free Text/Narrative Note: Shilpa is a 39-year-old 5 now para 4-1-0-6 (twins) presently at 37-6/7 weeks gestational age with an MARCELINA of 08/06/2020 who was admitted to labor and delivery in early labor with spontaneous rupture membranes with resultant clear amniotic fluid. She spontaneously and quickly dilated to 10 cm by approximately 0555 hrs. on 07/22/2020. She then delivered a viable, asencio, female a right occiput anterior position over an intact perineum at 0630 hrs. on 07/22/2020. The baby was placed on mother's abdomen and dried with warm blanket. Nose and mouth were bulb suction. The baby weighed 2500 g (5 pounds 8.2 ounces), had a length of 18 inches. Head circumference was 12-3/4 inches and chest was 11.5 inches. Abdomen was 10.5. Pitocin was increased to 500 cc/h per protocol to facilitate increase in uterine tone and decrease likelihood of bleeding. Cord was allowed time to pulsate for approximately 2 to 3 minutes then was clamped x2 and cut by the baby's father Satish. The umbilical cord had 3 vessels. Cord blood was obtained. The placenta delivered at 0634 hrs. in a Bartlett presentation, appeared intact and complete and was discarded per patient desire. The perineum appeared intact and no suturing was required. Patient plans to breast-feed. Estimated blood loss 100 cc. Condition: Good
[2020-07-22] MEDS ORDERED: Witch Hazel Medicated Pads 40/Jar TOP PRN (07:16)
[2020-07-22] MEDS ORDERED: Benzocaine/Menthol 20%-0.5% Spray 56 GM Canister TOP PRN (07:16)
[2020-07-22] MEDS ORDERED: Docusate Sodium 100 MG Cap PO PRN (07:16)
[2020-07-22] MEDS: Ibuprofen 600 MG Tab PO PRN ×2 (09:16→18:50)
[2020-07-22] MEDS: Prenatal Multivitamin with Calcium/Folic Acid/Iron Tab PO SCH (09:16)
[2020-07-23] MEDS: Prenatal Multivitamin with Calcium/Folic Acid/Iron Tab PO SCH (08:27)
[2020-07-23 10:02] VITALS: BP 123/70; PULSE 73
--- NOTE | 2020-07-23 11:10 | PCM.DCSUM1 ---
Discharge Summary - Hospital Course Free Text/Narrative:: Shilpa is a 39-year-old 5 now para 4-1-0-6 (twins) presently at 37-6/7 weeks gestational age with an MARCELINA of 08/06/2020 who was admitted to labor and delivery in early labor with spontaneous rupture membranes with resultant clear amniotic fluid. She spontaneously and quickly dilated to 10 cm by approximately 0555 hrs. on 07/22/2020. She then delivered a viable, asencio, female infant a right occiput anterior position over an intact perineum at 0630 hrs. on 07/22/2020. The baby was placed on mother's abdomen and dried with warm blanket. Nose and mouth were bulb suction. The baby weighed 2500 g (5 pounds 8.2 ounces), had a length of 18 inches. Head circumference was 12-3/4 inches and chest was 11.5 inches. Abdomen was 10.5. Pitocin was increased to 500 cc/h per protocol to facilitate increase in uterine tone and decrease likelihood of bleeding. Cord was allowed time to pulsate for approximately 2 to 3 minutes then was clamped x2 and cut by the baby's father Satish. The umbilical cord had 3 vessels. Cord blood was obtained. The placenta delivered at 0634 hrs. in a Bartlett presentation, appeared intact and complete and was discarded per patient desire. The perineum appeared intact and no suturing was required. Patient plans to breast-feed. Estimated blood loss 100 cc. Patient is doing well. She has minimal lochia, is ambulating well and voiding without concerns. She is bottlefeeding. She is desiring discharge home. Condition: Good Diagnosis: Stroke: No - Discharge Data Discharge Date: 07/23/20 Discharge Disposition: Home, Self-Care 01 Condition: Good - Referral to Home Health Primary Care Physician: Venkata Luu MD - Patient Instructions Diet: Regular Diet as Tolerated Activity: As Tolerated (No intercourse or tampons until bleeding resolves.) Driving: May Drive Today Showering/Bathing: May Shower Showering/Bathing, Other: May take a bath Notify Provider of: Fever, Increased Pain, Swelling and Redness, Nausea and/or Vomiting - Discharge Plan Home Medications: Home Meds Vit with Ca/FA/Iron [ Plus Iron] 1 each PO DAILY #1100 tablet 02/15/14 [Rx] Acetaminophen/Diphenhydramine [Tylenol Pm Ex-Strength Caplet] 1 each PO 07/22/20 [History] Acetaminophen [Tylenol] 650 mg PO Q4H PRN tablet 07/23/20 [Rx] Ibuprofen [Motrin] 600 mg PO Q4H PRN tablet 07/23/20 [Rx] Patient Handouts: Care After Vaginal Delivery, After Breast Surgery Referrals: Venkata Luu MD [Primary Care Provider] - (Return to clinicDr. Luu2 weeks.`) - Discharge Summary/Plan Comment DC Time >30 min.: No Discharge Summary/Plan Comment: Discharge instructions: 1. Discharge home 2. Diet, activity and follow-up discussed with patient. 3. Precautions given concern increased pain, bleeding, temperature, signs/symptoms of DVT/PE. 4. Medications per home medication was printed, discussed with and given to the patient. 5. Return to clinic-Dr. Luu[facility] [place] in 2 weeks. Diagnosis: Term -delivered Condition: Good - Patient Data Vitals - Most Recent: Last Vital Signs Temp 36.7 C 07/23/20 08:56 Pulse 73 07/23/20 08:56 Resp 18 07/23/20 08:56 BP 123/70 07/23/20 09:03 Pulse Ox 97 07/23/20 08:56 Weight - Most Recent: 111.402 kg I&O - Last 24 hours: Intake & Output 07/22/20 07/23/20 07/23/20 22:59 06:59 14:59 Intake Total 380 Balance 380 Lab Results - Last 24 hrs: Laboratory Results - last 24 hr 07/22/20 Range/Units 02:05 RPR Non-reactive (NONREACTIVE) Med Orders - Current: Current Medications Acetaminophen (Tylenol) 650 mg PO Q4H PRN PRN Reason: mild pain or fever Last Admin: 07/23/20 08:27 Dose: 650 mg Documented by: Benzocaine/Menthol (Dermoplast Pain Relief [place]) 0 gm TOP ASDIRECTED PRN PRN Reason: Perineal Comfort Measure Docusate Sodium (Colace) 100 mg PO BID PRN PRN Reason: Constipation Last Admin: 07/22/20 09:16 Dose: 100 mg Documented by: Ibuprofen (Motrin) 600 mg PO Q4H PRN PRN Reason: Mild pain or fever Last Admin: 07/22/20 18:50 Dose: 600 mg Documented by: Anitha Multivit/[place]/Iron/Folic Ac ( Plus Iron) 1 each PO DAILY FARZANEH Last Admin: 07/23/20 08:27 Dose: 1 each Documented by: [facility]) 1 pad TOP ASDIRECTED PRN PRN Reason: Perineal Comfort Measure Discontinued Medications Acetaminophen (Tylenol) 650 mg PO Q4H PRN PRN Reason: Pain (Mild 1-3) and fever Last Admin: 07/22/20 04:23 Dose: 650 mg Documented by: Calcium Carbonate/Glycine (Tums) 1,000 mg PO Q2H PRN PRN Reason: Indigestion Diphenhydramine HCl (Benadryl) 25 mg IVPUSH Q6H PRN PRN Reason: pruritis Ephedrine Sulfate (Ephedrine Sulfate) 5 mg IVPUSH ASDIRECTED PRN PRN Reason: Hypotension Fentanyl (Sublimaze) 100 mcg EPIDUR Q3H PRN PRN Reason: Pain Fentanyl/Bupivacaine HCl (Fentanyl/Bupivacaine/Ns 2 Mcg-0.125% 100 Ml) 100 ml EPIDUR ASDIRECTED PRN PRN Reason: Pain Lactated Ringer's (Ringers, Lactated) 1,000 mls @ 100 mls/hr IV ASDIRECTED FARZANEH Last Admin: 07/22/20 06:01 Dose: 100 mls/hr Documented by: Oxytocin/Lactated Ringer's (Pitocin In Lr 10 Units/1,000 Ml) 10 unit in 1,000 mls @ 12 mls/hr IV TITRATE FARZANEH; Protocol Oxytocin/Lactated Ringer's (Pitocin In Lr 10 Units/1,000 Ml) 10 unit in 1,000 mls @ 500 mls/hr IV .CONTINUOUS FARZANEH Last Admin: 07/22/20 06:30 Dose: 500 mls/hr Documented by: Lidocaine HCl (Xylocaine 1%) 50 ml INJECT ONETIME ONE Stop: 07/22/20 01:52 Nalbuphine HCl (Nubain) 10 mg IVPUSH Q2H PRN PRN Reason: Pain Ondansetron HCl (Zofran) 4 mg IVPUSH Q4H PRN PRN Reason: Nausea/Vomiting Sodium Chloride (Saline Flush) 10 ml FLUSH ASDIRECTED PRN PRN Reason: Keep Vein Open
== END 2020-07-23 14:12 | disposition home or self-care (01) | DRG 807 ==
LOC: JD.OBCHECK 00:54 → JD.OB 00:59 → JD.OBCHECK 01:50 → JD.OB 01:51 → OBSVTOIN 06:30 → JD.OB 06:31
PROVIDERS: ADMIT Obstetrics & Gynecology; ATTEND Obstetrics & Gynecology
PROC: 10E0XZZ Delivery of Products of Conception, External Approach (ICD-10-PCS; principal; 2020-07-22)
DX: O80 Encounter for full-term uncomplicated delivery (principal); Z37.0 Single live birth; Z3A.37 37 weeks gestation of pregnancy; Z20.822 Contact with and (suspected) exposure to COVID-19
CPT/HCPCS: 36415; 59025; 59409; 82962; 84112; 85025; 86592; 86850; 86900; 86901; A9270-GY; J2590; J7120; U0002

== ENCOUNTER 2021-08-23 16:36 | Emergency (ER) | payer MEDICAID ==
[2021-08-23 16:57] VITALS: BP 148/80
== END 2021-08-23 18:40 | disposition home or self-care (01) ==
LOC: JD.ED 16:36
DX: R07.89 Other chest pain (principal); R55 Syncope and collapse
CPT/HCPCS: 36415; 80053; 84484; 85025; 93005; 93010; 99284-25; 99285